=== PATIENT | female | born 1995 | race Native Hawaiian/Other Pacific Islander ===

== ENCOUNTER 2017-10-17 06:10 | Inpatient (IN) | payer OTHER ==
[2017-10-17] MEDS ORDERED: OXYTOCIN/NORMAL SALINE 1,000 ML IV PRN (06:17)
[2017-10-17] MEDS ORDERED: LR 1,000 ML IV PRN (06:17)
[2017-10-17] MEDS ORDERED: OLIVE OIL 118 ML BTL MISC PRN (06:17)
[2017-10-17] MEDS ORDERED: TERBUTALINE SULFATE 1 MG/ML VIAL IV PRN (06:17)
[2017-10-17] MEDS ORDERED: MISOPROSTOL 200 MCG TAB PR PRN (06:17)
[2017-10-17] MEDS ORDERED: EPSOM SALT 454 GM TP PRN (06:17)
[2017-10-17] MEDS ORDERED: LIDOCAINE 1% 300 MG/30 ML SDV SC PRN (06:17)
[2017-10-17 06:52] LABS: PLATELET COUNT 241 10^3/uL (150-400)
[2017-10-17] MEDS ORDERED: LR 500 ML IV PRN (08:06)
--- NOTE | 2017-10-17 08:09 | PDGENHP ---
History and Physical History and Physical: CARE: [facility] HPI: Patient is a 21 yo with IUP@ 40-5wks that presents to L&D for IOL. She had koehler balloon placed 10/16/17 @ 1700. She denies any regular contractions, LOF, VB. She reports +FM. EDC: 10/19/16 which is based on LMP: 01/04/2017 which is known and consistent with Ultrasound at 6 weeks. Her is complicated by: h/o depression/anxiety, sleep issues, rubella NI, fam h/o cardiac defect Review of Systems: Constitutional: Denies any fever, chills, or fatigue HEENT: denies any visual changes, difficulty swallowing, hearing loss Cardiovascular: Denies any chest pain, palpitations, leg swelling Respiratory: denies any cough, wheezing, or shortness of breathe GI: Denies any nausea, vomiting, diarrhea, constipation : denies any dysuria, urgency, frequency, vaginal bleeding Musculoskeletal: denies any muscle or bone pain Skin: denies any rashes Neuro: denies any headache, seizures, lightheadedness, dizziness, or loss of consciousness Psychiatric: denies any depression, anxiety, or SI/HI thoughts HISTORY: Previous OB history: EAB 14yo Past medical history: depression/anxiety, rubella NI Past surgical history:tonsillectomy 2012, oral surgery 2017 Medications: PNV Allergies (list reaction): amoxicillin- GI upset LABS: Rh: O pos ABS: Neg Rubella: Non-Immune HbsAg: NR HIV: NR VDRL: NR 1hr: 90 GC: Neg Chlamydia: Neg Pap: Normal GBS: Neg BMI: (prepreg) 24 PHYSICAL EXAM: Constitutional: WN, A&Ox3 HEENT: normocephalic atraumatic, supple Heart: RRR, no murmur Chest: CTA-B Abdomen: Soft, nontender, gravid SVE: deferred, koehler balloon out at 0815 Extremities: 1+pedal edema, negative homans sign Neuro: grossly normal Psych: normal affect assessment: Reassuring FHTs, baseline 135 +accels, no decels, moderate variability Contractions: toco q irregular Assessment: 1) [id number] with IUP@40-5wks 2) IOL 3) GBS negative 4) Cat 1 FHR tracing 5) OP position Plan: 1) Admit to L&D 2) start pitocin per protocol 3) position changes to help promote OA position 4) reassess 2hr/PRN 5) AROM when applicable 6) anticipate
[2017-10-17] MEDS ORDERED: OXYTOCIN/NORMAL SALINE 500 ML IV SCH (08:30)
[2017-10-17] MEDS ORDERED: TERBUTALINE SULFATE 1 MG/ML VIAL ONE (09:05)
[2017-10-17] MEDS ORDERED: AMMONIA AROMATIC 1 EACH AMP IH ONE (09:05)
[2017-10-17] MEDS ORDERED: OLIVE OIL 118 ML BTL ONE (09:05)
[2017-10-17] MEDS ORDERED: LIDOCAINE 1% 300 MG/30 ML SDV ONE (09:05)
[2017-10-17] MEDS ORDERED: MISOPROSTOL 200 MCG TAB ONE (09:06)
[2017-10-17] MEDS ORDERED: OXYTOCIN 10 UNIT/ML VIAL ONE (09:06)
--- NOTE | 2017-10-17 19:35 | OBPROG ---
Labor Progress Note Assessment/Plan: Assessment: [id number] with IUP@40-5wks IOL GBS Neg Cat 1 FHR Tracing AROM- clear Plan: reassess 2hr/PRN pain management/hydrotherapy anticipate 10/17/17 19:32 10/17/17 19:35 Subjective/Intrapartum Course: 10/17/17 19:33 pt doing well, ambulating and resting. reports min pain with contractions. FOB @ BS and supportive. Objective: 10/17/17 06:44 Patient ABO/Rh O POSITIVE 10/17/17 06:44 - SVE Dilation (cm): 5 Effacement (%): 50 Station: -2 Membranes: AROM Amniotic Fluid Color: Clear - Contraction Pattern Assessment Current Contraction Pattern: Irregular - FHR Assessment Stahl FHR (bpm): 140 FHR Pattern Variability: Moderate FHR Category: 1 - Procedures Non-surgical Procedures: Amniotomy Oxytocin Orders Assessment - Pre-Induction/Augmentation Assessment Gestational Age: 40 week(s) and 5 day(s) ICD10 Worksheet Patient Problems: Problems Problem Status Onset Encounter for induction of labor Acute - ICD10 Problem Qualifiers (1) Encounter for induction of labor
[2017-10-17] MEDS ORDERED: fentaNYL 200 MCG, BUPIVACAINE 0.5% 20 ML in NS 100 ML EP SCH (21:00)
[2017-10-17] MEDS ORDERED: fentaNYL 100 MCG/2 ML INJ ONE (21:14)
[2017-10-17] MEDS ORDERED: BUPIVACAINE 0.25% 30 ML SDV ONE (21:14)
[2017-10-17] MEDS ORDERED: PHENYLEPHRINE HCL 100 MCG/ML SYR ONE (21:15)
[2017-10-17] MEDS ORDERED: LR 500 ML IV SCH (22:00)
--- NOTE | 2017-10-17 22:00 | PREANESOB ---
Obstetric Pre-Anesthesia Info - General Info Proposed Procedure: PCEA : 2 Para: 0 ISADORA: 10/12/17 Gestational Age: 40 week(s) and 5 day(s) - Info Status: Postmature - Labor Status Cervical Dilation per last OB SVE: 5 Station per last OB SVE: -2 Amniotic Fluid Color: Clear Labor Epidural: Yes Anesthesia Allergies/Adverse Reactions: Allergy/AdvReac Type Severity Reaction Status Date / Time amoxicillin Allergy Mild GI Upset Verified 10/17/17 06:17 Home Medications: Medication Instructions Recorded Docusate Sodium PO DAILY 10/17/17 Evening [place] Oil Softgel 1 tab PO DAILY 10/17/17 Lactobacillus Acidophilus PO DAILY 10/17/17 [Probiotic] 1 tab PO DAILY 10/17/17 Visit Medications: Generic Name Dose Route Start Last Admin Trade Name Freq PRN Reason Stop Dose Admin Lactated Ringer's 1,000 mls @ 0 mls/hr 10/17/17 06:17 10/17/17 08:43 Lr IV 10/18/17 06:16 1,000 mls PRN PRN Administration SEE PROTOCOL CONDITIONS Protocol Per Protocol Oxytocin/Sodium Chloride 1,000 mls @ 0 mls/hr 10/17/17 06:17 Pitocin 20 Units/Ns (Premix) IV PRN PRN Post Bleeding Protocol As Directed Lactated Ringer's 500 mls @ 500 mls/hr 10/17/17 08:06 Lr IV 10/18/17 08:07 PRN PRN Maternal Hypotension Oxytocin/Sodium Chloride 500 mls @ 0 mls/hr 10/17/17 08:30 10/17/17 08:42 Pitocin 30 Units/Ns (Premix) IV 04/15/18 08:29 500 mls CONT KRISTINA Administration Protocol Per Protocol Fentanyl 200 mcg/ Bupivacaine 100 mls @ 0 mls/hr 10/17/17 21:00 HCl 20 ml/ Sodium Chloride EP 10/27/17 20:59 CONT KRISTINA Protocol As Directed Ibuprofen 600 mg 10/17/17 06:17 Motrin PO 04/15/18 06:16 Q6HRS PRN post , inflammation Lidocaine HCl 300 mg 10/17/17 06:17 Lidocaine Hcl 1% SC 04/15/18 06:16 ONCE PRN episiotomy Magnesium Sulfate 454 gm 10/17/17 06:17 Epsom Salt TP 10/09/18 06:16 Q1H PRN perineal discomfort Misoprostol 800 - 1,000 mcg 10/17/17 06:17 Cytotec PA ONCE PRN Vaginal Atony/Bleeding [place] Oil 118 ml 10/17/17 06:17 Sweet Oil MISC 04/15/18 06:16 ONCE PRN perineal massage Terbutaline Sulfate 0.25 mg 10/17/17 06:17 Brethine IV 04/15/18 06:16 ONCE PRN Tachysystole Discontinued Medications Generic Name Dose Route Start Last Admin Trade Name Frerica PRN Reason Stop Dose Admin Ammonia (Aromatic Spirit) Confirm 10/17/17 09:05 Ammonia Aromatic Administered 10/17/17 09:06 Dose 1 each IH .STK-MED ONE Bupivacaine HCl Confirm 10/17/17 21:14 Sensorcaine 0.25% Sdv Administered 10/17/17 21:15 Dose 30 ml .ROUTE .STK-MED ONE Fentanyl Confirm 10/17/17 21:14 Sublimaze Administered 10/17/17 21:15 Dose 100 mcg .ROUTE .STK-MED ONE Lidocaine HCl Confirm 10/17/17 09:05 Lidocaine Hcl 1% Administered 10/17/17 09:06 Dose 300 mg .ROUTE .STK-MED ONE Misoprostol Confirm 10/17/17 09:06 Cytotec Administered 10/17/17 09:07 Dose 1,000 mcg .ROUTE .STK-MED ONE [place] Oil Confirm 10/17/17 09:05 Sweet Oil Administered 10/17/17 09:06 Dose 118 ml .ROUTE .STK-MED ONE Oxytocin Confirm 10/17/17 09:06 Pitocin Administered 10/17/17 09:07 Dose 40 unit .ROUTE .STK-MED ONE Phenylephrine HCl Confirm 10/17/17 21:15 Neosynephrine Administered 10/17/17 21:16 Dose 1,000 mcg .ROUTE .STK-MED ONE Terbutaline Sulfate Confirm 10/17/17 09:05 Brethine Administered 10/17/17 09:06 Dose 1 mg .ROUTE .STK-MED ONE - Vital Signs Height/Weight (Nursing): Height 162.56 cm Weight 79.832 kg Labs: 10/17/17 06:44 Patient ABO/Rh O POSITIVE 10/17/17 06:44
[2017-10-17] MEDS ORDERED: fentaNYL 2MCG/ML/BUP 0.1% RTU 100 ML EP SCH (22:30)
--- NOTE | 2017-10-17 22:40 | OBPROG ---
Labor Progress Note Assessment/Plan: Assessment: [id number] with IUP@40-5wks IOL GBS Neg Cat 1 FHR Tracing AROM- clear FREDDY in place Plan: reassess 2hr/PRN anticipate 10/17/17 19:32 10/17/17 19:35 10/17/17 22:37 Subjective/Intrapartum Course: 10/17/17 19:33 pt doing well, ambulating and resting. reports min pain with contractions. FOB @ BS and supportive. 10/17/17 22:37 Pt comfortable with FREDDY. Denies any pain with contractions. She is tired and plans to rest. FOB/mother/drivers license examiner at BS and supportive. Objective: 10/17/17 06:44 Patient ABO/Rh O POSITIVE 10/17/17 06:44 - SVE Dilation (cm): 6 Effacement (%): 90 Station: -1 (coupling present) Membranes: AROM Amniotic Fluid Color: Clear - Contraction Pattern Assessment Current Contraction Pattern: Irregular - FHR Assessment Stahl FHR (bpm): 140 FHR Pattern Variability: Moderate FHR Category: 1 - Procedures Non-surgical Procedures: Amniotomy Oxytocin Orders Assessment - Pre-Induction/Augmentation Assessment Presentation: Vertex, Occiput Posterior Gestational Age: 40 week(s) and 5 day(s) Current Contraction Pattern: Irregular - Heart Rate Pattern Stahl FHR Category: 1 - Marshall's Score Dilation: 5-6cm Effacement: 80+ Station: -1,0 Cervix: Medium Cervix Position: Mid Marshall Score Total: 10 - Induction/Augmentation Consent Risks/Benefits of Procedure Reviewed/Pt Agrees to Proceed: Yes ICD10 Worksheet Patient Problems: Problems Problem Status Onset Encounter for induction of labor Acute - ICD10 Problem Qualifiers (1) Encounter for induction of labor
--- NOTE | 2017-10-18 03:54 | OBPROG ---
Labor Progress Note Assessment/Plan: Assessment: [id number] with IUP@40-5wks IOL GBS Neg Cat 2 FHR Tracing AROM- clear FREDDY in place Plan: cont pushing if patient able anticipate 10/17/17 19:32 10/17/17 19:35 10/17/17 22:37 10/18/17 03:52 Subjective/Intrapartum Course: 10/17/17 19:33 pt doing well, ambulating and resting. reports min pain with contractions. FOB @ BS and supportive. 10/17/17 22:37 Pt comfortable with FREDDY. Denies any pain with contractions. She is tired and plans to rest. FOB/mother/account information clerk at BS and supportive. 10/18/17 00:25 pt reports having intermittent pressure, has desire to push. Objective: 10/17/17 06:44 Patient ABO/Rh O POSITIVE 10/17/17 06:44 - SVE Dilation (cm): 10 Effacement (%): 100 Station: 0 Membranes: AROM Amniotic Fluid Color: Clear Dilation Complete Date: 10/18/17 Dilation Complete Time: 00:10 - Contraction Pattern Assessment Current Contraction Pattern: Irregular - Procedures Non-surgical Procedures: Amniotomy Oxytocin Orders Assessment - Pre-Induction/Augmentation Assessment Presentation: Vertex, Occiput Posterior Gestational Age: 40 week(s) and 5 day(s) ICD10 Worksheet Patient Problems: Problems Problem Status Onset Encounter for induction of labor Acute - ICD10 Problem Qualifiers (1) Encounter for induction of labor
[2017-10-18] MEDS ORDERED: ACETAMINOPHEN 500 MG TAB PO ONE (04:45)
--- NOTE | 2017-10-18 05:45 | OBDEL ---
Info Type: Vaginal Presentation at Delivery: Vertex L&D Analgesia/Anesthesia Type: Epidural GBS+: No Intrapartum Medications: Generic Name Dose Route Start Last Admin Trade Name Freq PRN Reason Stop Dose Admin Lactated Ringer's 1,000 mls @ 0 mls/hr 10/17/17 06:17 10/17/17 08:43 Lr IV 10/18/17 06:16 1,000 mls PRN PRN Administration SEE PROTOCOL CONDITIONS Protocol Per Protocol Oxytocin/Sodium Chloride 500 mls @ 0 mls/hr 10/17/17 08:30 10/17/17 08:42 Pitocin 30 Units/Ns (Premix) IV 04/15/18 08:29 500 mls CONT KRISTINA Administration Protocol Per Protocol Discontinued Medications Generic Name Dose Route Start Last Admin Trade Name Freq PRN Reason Stop Dose Admin Acetaminophen 1,000 mg 10/18/17 04:45 10/18/17 04:42 Tylenol PO 10/18/17 04:46 1,000 mg ONCE ONE Administration - Hospital Course Intrapartum: 10/17/17 19:33 pt doing well, ambulating and resting. reports min pain with contractions. FOB @ BS and supportive. 10/17/17 22:37 Pt comfortable with FREDDY. Denies any pain with contractions. She is tired and plans to rest. FOB/mother/personnel consultant at BS and supportive. 10/18/17 00:25 pt reports having intermittent pressure, has desire to push. Indications for Delivery: Postterm Favorable Cervix Vaginal Delivery - Delivery Provider Delivery Physician/CNM: Cinthya Dillon - Labor and Delivery Onset of Contractions Date: 10/17/17 Onset of Contractions Time: 19:45 Onset of Contractions Type: Induced Rupture of Membranes Date: 10/17/17 Rupture of Membranes Time: 16:52 Rupture of Membranes Type: Artificial Amniotic Fluid Color: Clear Dilation Complete Date: 10/18/17 Dilation Complete Time: 00:52 Placenta Delivery Date: 10/18/17 Placenta Delivery Time: 05:01 Total Hours of Labor: 9 Non-surgical Procedures: Amniotomy Laceration: 2nd Degree Repair: 3-0, Vicryl Vaginal Sponge Count Correct: Yes Vaginal Needle Count Correct: Yes Vaginal Sweep Performed: Yes EBL: 700 Delivery Events: Post Hemorrhage - Medications Labor Augmentation/Induction Methods Used: Pitocin, Thompson Bulb Labor Augmentation/Induction Indication: Post Dates Max Data ISADORA: 10/12/17 Gestational Age: 40 week(s) and 6 day(s) Stahl Delivery Date: 10/18/17 Delivery Time: 04:59 Sex of : Male Score (1 Min): 7 Score (5 Min): 8 ICD10 Worksheet Patient Problems: Problems Problem Status Onset Encounter for induction of labor Acute Perineal laceration during delivery Acute hemorrhage Acute (spontaneous vaginal delivery) Acute - ICD10 Problem Qualifiers (1) Encounter for induction of labor (2) (spontaneous vaginal delivery) (3) Perineal laceration during delivery (4) hemorrhage
[2017-10-18] MEDS ORDERED: ACETAMINOPHEN 325 MG TAB PO PRN (05:55)
[2017-10-18] MEDS ORDERED: SIMETHICONE 80 MG TAB CHEW PO PRN (05:55)
[2017-10-18] MEDS ORDERED: HYDROCORTISONE 0.5% CREAM TP PRN (05:55)
[2017-10-18] MEDS: IBUPROFEN 600 MG TAB PO PRN ×4 (06:02→23:57)
[2017-10-18] MEDS: HYDROCODONE/APAP 5/325 TAB PO PRN ×2 (10:34→20:59)
[2017-10-18] MEDS ORDERED: MEASLES,MUMPS&RUBELLA VACC/PF 0.5 ML VIAL SC ONE (12:10)
[2017-10-18] MEDS: DOCUSATE SODIUM 100 MG CAP PO PRN (20:59)
[2017-10-19] MEDS: IBUPROFEN 600 MG TAB PO PRN ×3 (06:33→18:28)
[2017-10-19] MEDS: DOCUSATE SODIUM 100 MG CAP PO PRN ×2 (08:50→20:38)
[2017-10-19] MEDS: HYDROCODONE/APAP 5/325 TAB PO PRN ×3 (08:50→22:33)
[2017-10-19] MEDS ORDERED: MEASLES,MUMPS&RUBELLA VACC/PF 0.5 ML VIAL SC ONE (12:00)
--- NOTE | 2017-10-19 17:48 | OBPP ---
Progress Note Assessment/Plan: Assessment: [id number] s/p with PPH anemia Plan: routine PP Care start PO iron cont , work with plan to d/c home tomorrow Subjective/ Course: 10/19/17 17:46 pt doing well. she is , currently using shells to help steven nipples. She is ambulating and voiding without difficulty. She denies any heavy bleeding or severe pain. She does report moderate back pain. FOB, Alirio, at BS and supportive. Objective: 10/18/17 15:45 Patient ABO/Rh O POSITIVE 10/17/17 06:44 Temp Pulse Resp BP Pulse Ox 36.1 C 92 14 101/58 L 97 10/19/17 08:00 10/19/17 08:00 10/19/17 08:00 10/19/17 08:00 10/19/17 08:00 Uterine Position/Fundal Height: Umbilicus -1, Midline Uterine Tone: Firm Physical Exam - Physical Exam General Appearance: WD/WN, alert, no apparent distress Neck: supple Abdomen: non-tender, soft Skin: warm/dry Neuro/Psych: no motor/sensory deficits, alert, normal mood/affect, oriented x 3
[2017-10-19] MEDS: IRON POLYSAC/IRON HEME 28 MG TAB PO SCH ×2 (18:28→20:38)
[2017-10-19] MEDS ORDERED: EPSOM SALT 454 GM TP PRN (18:49)
[2017-10-20] MEDS: IBUPROFEN 600 MG TAB PO PRN ×2 (01:39→08:32)
[2017-10-20] MEDS: IRON POLYSAC/IRON HEME 28 MG TAB PO SCH (08:32)
[2017-10-20] MEDS: DOCUSATE SODIUM 100 MG CAP PO PRN (08:32)
[2017-10-20 08:40] VITALS: BP 99/56
[2017-10-20] MEDS: HYDROCODONE/APAP 5/325 TAB PO PRN (10:14)
--- NOTE | 2017-10-20 11:48 | OBPP ---
Progress Note Assessment/Plan: Assessment: PPD 2 s/p PPH Plan: doing well, D/C home, iron BID 10/20/17 11:44 Subjective/ Course: 10/19/17 17:46 pt doing well. she is , currently using shells to help steven nipples. She is ambulating and voiding without difficulty. She denies any heavy bleeding or severe pain. She does report moderate back pain. FOB, Alirio, at BS and supportive. 10/20/17 11:46 Pt doing ok. Both are pretty tired. Baby is latching well but nipples are cracked. bld is lessening. urinating fine. ready for d/c. using [place] occas for perineal soreness. reports BM yesterday - warned of constipation Objective: 10/18/17 15:45 Patient ABO/Rh O POSITIVE 10/17/17 06:44 Temp Pulse Resp BP Pulse Ox 36.3 C 80 14 99/56 L 97 10/20/17 08:00 10/20/17 08:00 10/20/17 08:00 10/20/17 08:00 10/20/17 08:00 Uterine Position/Fundal Height: Umbilicus -2 Uterine Tone: Firm Physical Exam - Physical Exam Abdomen: non-tender, soft, other (FF at umb -2, lochia scant) Extremities: non-tender, pedal edema (minimal) Skin: normal color, warm/dry Neuro/Psych: alert, normal mood/affect
--- NOTE | 2017-10-20 11:52 | OBGCSDC ---
General Delivery Information - General Info : 2 Para: 1 Abortions: 1 Type: Vaginal L&D Analgesia/Anesthesia Type: Epidural, Nitrous Admission Date: 10/17/17 Labs: Patient ABO/Rh O POSITIVE 10/17/17 06:44 Hct 27.9 % (38.0-47.0) L D 10/18/17 15:45 - Hospital Course Intrapartum: 10/17/17 19:33 pt doing well, ambulating and resting. reports min pain with contractions. FOB @ BS and supportive. 10/17/17 22:37 Pt comfortable with FREDDY. Denies any pain with contractions. She is tired and plans to rest. FOB/mother/personal service workers at BS and supportive. 10/18/17 00:25 pt reports having intermittent pressure, has desire to push. : 10/19/17 17:46 pt doing well. she is , currently using shells to help steevn nipples. She is ambulating and voiding without difficulty. She denies any heavy bleeding or severe pain. She does report moderate back pain. FOB, Alirio, at BS and supportive. 10/20/17 11:46 Pt doing ok. Both are pretty tired. Baby is latching well but nipples are cracked. bld is lessening. urinating fine. ready for d/c. using [place] occas for perineal soreness. reports BM yesterday - warned of constipation Vaginal - Delivery Provider Delivery Physician/CNM: Cinthya Dillon - Diagnosis Labor: Induced Rupture of Membranes Type: Artificial Amniotic Fluid Color: Clear Laceration: 2nd Degree Repair: 3-0, Vicryl Delivery Events: Post Hemorrhage - Procedures Non-surgical Procedures: Amniotomy - Delivery Non-surgical Procedures: Amniotomy EBL: 700 Data ISADORA: 10/12/17 Gestational Age: 41 week(s) and 1 day(s) Stahl Delivery Date: 10/18/17 Delivery Time: 04:59 Sex of : Male Score (1 Min): 7 Score (5 Min): 8 Discharge Information - Discharge Information Prescriptions: Hydrocodone/APAP 5/325 [[place] 5/325 (*)] 1 - 2 tab PO Q4HRS PRN #7 tab PRN Reason: Pain, Moderate Condition: Good Instruction/Follow Up: See Instruction Sheet, Two Weeks, Four Weeks, Six Weeks
== END 2017-10-20 14:40 | disposition home or self-care (01) | DRG 774 ==
LOC: FLD 06:10 → FOB 10-18 12:04
PROVIDERS: ADMIT Hospitalist; ATTEND Obstetrics & Gynecology
PROC: 3E033VJ Introduction of Other Hormone into Peripheral Vein, Percutaneous Approach (ICD-10-PCS; principal; 2017-10-18)
PROC: 0KQM0ZZ Repair Perineum Muscle, Open Approach (ICD-10-PCS; principal; 2017-10-18)
PROC: 10E0XZZ Delivery of Products of Conception, External Approach (ICD-10-PCS; principal; 2017-10-18)
PROC: 10907ZC Drainage of Amniotic Fluid, Therapeutic from Products of Conception, Via Natural or Artificial Opening (ICD-10-PCS; principal; 2017-10-18)
DX: O48.0 Post-term pregnancy (principal); O70.1 Second degree perineal laceration during delivery; O72.1 Other immediate postpartum hemorrhage; O99.02 Anemia complicating childbirth; D64.9 Anemia, unspecified; Z88.0 Allergy status to penicillin; Z3A.40 40 weeks gestation of pregnancy; Z37.0 Single live birth; Z23 Encounter for immunization
CPT/HCPCS: J2370; J2590; J3010; J3105

== ENCOUNTER → 2017-10-22 | Outpatient (CLI) | payer OTHER | LOC: FLACT 12:42 | PROVIDERS: ATTEND Advanced Practice Midwife | DX: Z39.1 Encounter for care and examination of lactating mother (principal) | CPT/HCPCS: G0463 ==